=== PATIENT | female | born 1990 | race African-American/Black ===

== ENCOUNTER 2016-11-28 11:02 | Emergency (ER) | payer MEDICAID ==
[~2016-11-28] VITALS: Ht 175.3 cm; Wt 56.8 kg
[2016-11-28 11:06] VITALS: BP 122/76; PULSE 100; RESP 22; TEMP 97.9; O2SAT 97
--- NOTE | 2016-11-28 11:57 | PD ---
HPI Chief Complaint: Back/ Neck Pain or Injury Time Seen by Provider: 11:57 Travel History International Travel<30 days: No Contact w/Intl Traveler<30days: No Traveled to known affect area: No History of Present Illness HPI 26-year-old female presents to the emergency department for evaluation of vibrating sensation in her hips, thighs and feet when she bends her neck down. Patient states this began 3 days ago while she was smoking marijuana. States while she was smoking marijuana 3 days ago she noticed that when she bends her head down she gets a vibrating sensation in her hips, thighs and going to her feet bilaterally. States that at first she thought that it was secondary to the marijuana as sometimes when she gets "too high" she has panic attacks. But states that over the past 2 days she has not smoked any marijuana in her symptoms have persisted which is why she came in for evaluation. She denies any pain, numbness, tingling, weakness, neck pain, back pain, saddle anesthesia , bowel or bladder incontinence, fever, chills, nausea, vomiting. She states that she does have some slight dizziness associated with these symptoms but has been able to ambulate without difficulty. She denies any injury or trauma to her neck or back. Denies , last menstrual period 1 month ago. No other complaints. PFSH Past Medical History Medical History: Denies Significant Hx Diminished Hearing: No Tetanus Vaccination: > 5 Years Influenza Vaccination: No ?: Not LMP: 10/28/2016 Past Surgical History Surgical History: No Previous Surgery Social History Alcohol Use: No Tobacco Use: No Substance Use: No Allergies-Medications (Allergen,Severity, Reaction): Coded Allergies: No Known Allergies (Unverified , 11/28/16) Review of Systems Except as stated in HPI: all other systems reviewed are Neg Physical Exam Narrative GENERAL: Well-nourished and well-developed pleasant female patient in no acute distress who is nontoxic appearing. SKIN: Warm and dry. HEAD: Normocephalic and atraumatic. EYES: No injection, drainage, or hyphema noted. PERRLA. EOMI. ENT: No nasal drainage noted. Oropharynx is clear and the TMs are normal with good landmarks. NECK: Supple and the trachea is midline. No obvious deformities, crepitus or midline tenderness to palpation of the cervical spine. CARDIOVASCULAR: Regular rate and rhythm. RESPIRATORY: Breath sounds are equal bilaterally with no accessory muscle use, wheezing, rhonchi, or crackles. MUSCULOSKELETAL: No obvious deformities, swelling, cyanosis, or ecchymosis is present throughout the upper and lower extremities. Patient has full range of motion without any signs of neurovascular compromise. Strength 5/5 upper and lower extremities and equal bilaterally. BACK: Nontender without any obvious deformities, bony point tenderness, or crepitus noted throughout the thoracic and lumbar vertebrae. NEUROLOGICAL: Awake, alert, and oriented. Normal speech and gait. Ambulates down a straight line without difficulty. Cranial nerves are grossly intact. Data Data Last Documented VS Vital Signs Date Time Temp Pulse Resp B/P Pulse Ox O2 Delivery O2 Flow Rate FiO2 11/28/16 11:15 17 11/28/16 11:06 97.9 100 122/76 97 MDM Medical Decision Making Medical Screen Exam Complete: Yes Emergency Medical Condition: Yes Differential Diagnosis Substance abuse versus dizziness versus paresthesias versus other Narrative Course 26-year-old female presents to the emergency department for evaluation of "vibration" in her hips, thighs and feet when she bends her neck down. Patient is afebrile, vital signs are stable. The symptoms began while she was smoking marijuana. She's not had any trauma or injury to her head, neck or back. Physical examination is unremarkable, no focal neurologic deficits. I discussed with my attending physician Dr. Curtis and we agree the patient has no emergent signs or symptoms and that this is likely secondary to her marijuana use. She is instructed to stop using illegal substances. She is instructed to return to the emergency department for worsening of symptoms such as weakness, fever, numbness, bowel or bladder incontinence. She is advised to follow-up as an outpatient with a PCP. I discussed this with the patient who verbalizes understanding and is in agreement with treatment plan. I discussed the case with my attending physician Dr. Curtis who is aware of the patients history, physical examination findings, and treatment plan. Diagnosis Primary Impression: Dizziness Additional Impression: Substance abuse Referrals: Primary Care Physician Patient Instructions: Dizziness (ED), General Instructions Additional Instructions: Don't use illegal substances. Follow-up with your Primary Care Physician. Return to the ED for any acute worsening of symptoms. Med/Other Pt SpecificInfo: No Change to Meds Disposition: 01 DISCHARGE HOME Condition: Stable Alyssia Lawb 27, 2017 11:57
[2016-11-28 12:14] VITALS: BP 120/71; TEMP 97.8
== END 2016-11-28 12:15 | disposition home or self-care (01) ==
LOC: NEPA 11:02
DX: R42 Dizziness and giddiness (principal); F12.10 Cannabis abuse, uncomplicated
CPT/HCPCS: 99283